=== PATIENT | female | born 1995 | race Caucasian/White ===

== ENCOUNTER 2019-04-10 18:52 | Emergency (ER) | payer SELFPAY ==
[~2019-04-10] VITALS: Ht 167.6 cm; Wt 121.6 kg
[2019-04-10 18:56] VITALS: BP 159/78
[2019-04-10] MEDS ORDERED: PRED-220 PO (19:19)
--- NOTE | 2019-04-10 19:20 | PHYS DOC ---
Past History Past Medical History: GERD, Hypertension, Other Additional Past Medical Histor: PCOS Past Surgical History: Tonsillectomy Alcohol Use: Rarely Drug Use: None Adult General Chief Complaint Chief Complaint: BACK PAIN OR INJURY [facility] HPI 23-year-old female presents with low back pain that radiates down her bilateral legs. The patient is obese at baseline. 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 She has been walking more recently picking up extra shifts. About one week ago, she started to have this low back pain that has been decreasing. Last 2 days she has had pain radiating down the back of her legs. She describes the pain as a cramping sensation in the low back with shooting pains down her legs. She denies trauma or falls. No history of back injuries or surgery. She denies extremity weakness. She has been trying Tylenol and ibuprofen without relief. She denies fever or chills. Review of Systems Review of Systems Constitutional: Denies fever or chills [] Eyes: Denies change in visual acuity, redness, or eye pain [] HENT: Denies nasal congestion or sore throat [] Respiratory: Denies cough or shortness of breath [] Cardiovascular: No additional information not addressed in HPI [] GI: Denies abdominal pain, nausea, vomiting, bloody stools or diarrhea [] : Denies dysuria or hematuria [] Musculoskeletal: Low back pain[] Integument: Denies rash or skin lesions [] Neurologic: Denies headache, focal weakness or sensory changes [] Endocrine: Denies polyuria or polydipsia [] All other systems were reviewed and found to be within normal limits, except as documented in this note. Allergies Allergies Allergies Coded Allergies Type Severity Reaction Last Updated Verified sulfamethoxazole Allergy Unknown 04/10/19 Yes trimethoprim Allergy Unknown 04/10/19 Yes Physical Exam Physical Exam Constitutional: Well developed, morbidly obese, well nourished, no acute distress, non-toxic appearance. [] HENT: Normocephalic, atraumatic, bilateral external ears normal, oropharynx moist, no oral exudates, nose normal. [] Eyes: PERRLA, EOMI, conjunctiva normal, no discharge. [] Neck: Normal range of motion, no tenderness, supple, no stridor. [] Cardiovascular:Heart rate regular rhythm, no murmur [] Lungs & Thorax: Bilateral breath sounds clear to auscultation [] Abdomen: Bowel sounds normal, soft, no tenderness, no masses, no pulsatile masses. [] Skin: Warm, dry, no erythema, no rash. [] Back: No tenderness of the lumbar spine.[] Extremities: No tenderness, no cyanosis, no clubbing, ROM intact, no edema. [] Neurologic: Alert and oriented X 3, normal motor function, normal sensory function, no focal deficits noted. [] Psychologic: Affect normal, judgement normal, mood normal. [] Current Patient Data Vital Signs Vital Signs Date Time Temp Pulse Resp B/P (MAP) Pulse Ox O2 Delivery O2 Flow Rate FiO2 04/10/19 18:56 98.5 101 16 98 Room Air EKG EKG [] Radiology/Procedures Radiology/Procedures [] Course & Med Decision Making Course & Med Decision Making Pertinent Labs and Imaging studies reviewed. (See chart for details) The patient appears to have a lumbar strain with sciatic symptoms. I will try a ten-day course of prednisone. Will give the first dose in the ED. The patient may need to take some time off and see physical therapy. She is stable for discharge at this time. [] Dragon Disclaimer Dragon Disclaimer This electronic medical record was generated, in whole or in part, using a voice recognition dictation system. Departure Departure: Impression: Primary Impression: Lumbar strain Disposition: 01 HOME, SELF-CARE Condition: STABLE Referrals: PCP,NO (PCP) Patient Instructions: Low Back Strain with [facility]hab[facility] Scripts Prednisone (PREDNISONE) 10 Mg Tablet 10 MG PO UD for PREDNISONE TAPER, #30 TAB 0 Refills Take 5 tablets by mouth daily for 2 days, then take 4 tablets by mouth daily for 3 days, then take 2 tablet by mouth daily for 3 days, then take 1 tablet by mouth daily for 2 days, then stop. Prov: KARYNA ORTIZ DO 04/10/19 Problem Qualifiers Primary Impression: Lumbar strain Encounter type: initial encounter Qualified Codes: S39.012A - Strain of muscle, fascia and tendon of lower back, initial encounter KARYNA ORTIZ DO Apr 10, 2019 19:20
[2019-04-10] MEDS: predniSONE 20 MG TABLET PO ONE (19:43)
== END 2019-04-10 19:48 | disposition home or self-care (01) ==
LOC: ER 18:52
DX: S39.012A Strain of muscle, fascia and tendon of lower back, initial encounter (principal); K21.9 Gastro-esophageal reflux disease without esophagitis; I10 Essential (primary) hypertension; Z88.1 Allergy status to other antibiotic agents; X50.9XXA Other and unspecified overexertion or strenuous movements or postures, initial encounter; Y93.89 Activity, other specified; Y92.512 Supermarket, store or market as the place of occurrence of the external cause; Y99.0 Civilian activity done for income or pay
CPT/HCPCS: 99283; J7512

== ENCOUNTER 2019-04-30 18:03 | Emergency (ER) | payer SELFPAY ==
[~2019-04-30] VITALS: Ht 167.6 cm; Wt 121.6 kg
[~2019-04-30 18:03] MED LIST: PRED-220 PO
--- NOTE | 2019-04-30 18:08 | PHYS DOC ---
Past History Past Medical History: Constipation, GERD, Hypertension, IBS, Other Additional Past Medical Histor: PCOS Past Surgical History: Tonsillectomy Alcohol Use: Rarely Drug Use: None Adult General Chief Complaint Chief Complaint: NAUSEA/VOMITING/DIARRHEA..." I am running a fever... feel yuckie... nausea and I am vomiting.... My body feels cold.... Then hot..." HPI HPI Patient is a 23 year old female who presents with above hx and complaints of nausea, vomiting and left lower abdomen pain. No history of travel or specific ill contacts. Subjective complaints of fever like feeling. History of bad food intake. No history of trauma. No history immunosuppression. No history of trau ma. Normally does not follow-up primary care. Did not get a flu vaccination this year. Patient states she's been not feeling well for last 3 days. No history of colitis or family members. Patient states her period is not due for one week. Pt. has hx of IBS and GERD. Review of Systems Review of Systems Constitutional: Subjective fever or chills [] Eyes: Denies change in visual acuity, redness, or eye pain [] HENT: Denies nasal congestion or sore throat [] Respiratory: Denies cough or shortness of breath [] Cardiovascular: No additional information not addressed in HPI [] GI: Complaints abdominal pain, nausea, vomiting, and constipation : Denies dysuria or hematuria [] Musculoskeletal: Denies back pain or joint pain [] Integument: Denies rash or skin lesions [] Neurologic: Denies headache, focal weakness or sensory changes [] Endocrine: Denies polyuria or polydipsia [] All other systems were reviewed and found to be within normal limits, except as documented in this note. Family History Family History Noncontributory Current Medications Current Medications See nursing for home meds Allergies Allergies Allergies Coded Allergies Type Severity Reaction Last Updated Verified sulfamethoxazole Allergy Intermediate 04/10/19 Yes trimethoprim Allergy Intermediate 04/10/19 Yes Physical Exam Physical Exam Constitutional: , no acute distress, non-toxic appearance. [] HENT: Normocephalic, atraumatic, bilateral external ears normal, oropharynx moist, no oral exudates, nose normal. [] Eyes: PERRLA, EOMI, conjunctiva normal, no discharge. [] Neck: Normal range of motion, no tenderness, supple, no stridor. [] Cardiovascular:Heart rate regular rhythm, no murmur [] Lungs & Thorax: Bilateral breath sounds equal apex auscultation [] Abdomen: Bowel sounds normal, soft, left mid and lower abdomen tenderness, no masses, no pulsatile masses. [] Denies discharge. Denies dysuria.. Distended. Obese. No true rebound but some localization to left lower abdomen. Skin: Warm, dry, no erythema, no rash. [] Back: No tenderness, no CVA tenderness. [] Extremities: No tenderness, no cyanosis, no clubbing, ROM intact, no edema. [] No psoas sign. Neurologic: Alert and oriented X 3, normal motor function, normal sensory function, no focal deficits noted. [] Psychologic: Affect anxious, judgement normal, mood normal. [] EKG EKG [] Radiology/Procedures Radiology/Procedures [][address] [address] IMAGING REPORT Signed PATIENT: BEBO BARNES ACCOUNT: [id number] : 1995 LOCATION: ER AGE: 23 SEX: F EXAM STATUS: REG ER ORD. PHYSICIAN: RASHIDA KUMAR MD REASON: Abdomen pain, nausea, vomiting, body aches today PROCEDURE: ACUTE ABDOMEN SERIES Study: ACUTE ABDOMEN SERIES Indication: Abdominal pain, nausea and vomiting. Comparison: None. Findings: No abnormality of the lungs. The cardiomediastinal silhouette is within normal limits given projection. Nonobstructive bowel gas pattern. Mild/moderate well-formed stool burden scattered throughout the colon. No free air is identified. Impression: 1. Nonobstructive bowel gas pattern. 2. Mild/moderate well-formed stool burden within the colon. 3. No free air. 4. Unremarkable appearance of the chest. Electronically signed by: YONATHAN MILES MD (04/30/2019 8:44 PM) [facility] [place] DICTATED AND SIGNED BY: YONATHAN MILES MD DATE: 04/30/192043 CC: RASHIDA KUMAR MD; PCP,NO ~ Course & Med Decision Making Course & Med Decision Making Pertinent Labs and Imaging studies reviewed. (See chart for details) Patient's stay on a clear fluid diet for the next 2 days. No solids or milk products. Must allow bowel rest. Follow-up primary care. If persistent pain or discomfort. Must have re exam at that time may need a CT of abdomen. May take Zofran 8 mg up to 4 times day for only active vomiting. Tylenol and ibuprofen for pain. Must stay on a clear fluid diet no solid or milk products. Impression- 1. Abdomen pain 2. Constipation 3. Viral syndrome 4. Mild elevation of glucose 121 5. Drug screen positive for marijuana [] Dragon Disclaimer Dragon Disclaimer This electronic medical record was generated, in whole or in part, using a voice recognition dictation system. Departure Departure: Disposition: HOME/RESIDENCE PRIOR TO ADM Condition: STABLE Referrals: PCP,KYLE (PCP) Scripts Ondansetron Hcl (ZOFRAN) 8 Mg Tablet 8 MG PO QIDPRN PRN for only for active vomiting, #30 BOTTLE Prov: RASHIDA KUMAR MD 04/30/19 Dragon Disclaimer This chart was dictated in whole or in part using Voice Recognition software in a busy, high-work load, and often noisy Emergency Department environment. It may contain unintended and wholly unrecognized errors or omissions. Dragon Disclaimer This chart was dictated in whole or in part using Voice Recognition software in a busy, high-work load, and often noisy Emergency Department environment. It may contain unintended and wholly unrecognized errors or omissions. RASHIDA KUMAR MD Apr 30, 2019 18:08
[2019-04-30] MEDS ORDERED: IV RINGERS SOLUTION,LACTATED 1,000 ML IV SCH (18:45)
[2019-04-30] MEDS ORDERED: ONDANSETRON PF 4 MG/2 ML VIAL. IVP ONE (19:00)
[2019-04-30] MEDS ORDERED: FAMOTIDINE 20 MG/2 ML VIAL IVP ONE (19:00)
[2019-04-30] MEDS ORDERED: ACETAMINOPHEN 500 MG TABLET PO ONE (19:00)
[2019-04-30 19:15] LABS: BASO % 0 % (0-3); EOS % 0 % (0-3); HEMATOCRIT 40.2 % (36.0-47.0); HEMOGLOBIN 13.9 g/dL (12.0-15.5); LYMPH # 0.8 x10^3/uL (1.0-4.8); LYMPH % 10 % (24-48); MEAN CORPUSCULAR HEMOGLOBIN 30 pg (25-35); MEAN CORPUSCULAR HGB CONC 35 g/dL (31-37); MEAN CORPUSCULAR VOLUME 85 fL (79-100); MONO # 0.3 x10^3/uL (0.0-1.1); MONO % 4 % (0-9); NEUT # 6.8 x10^3uL (1.8-7.7); NEUT % 85 % (31-73); PLATELET COUNT 228 x10^3/uL (140-400); RED BLOOD COUNT 4.73 x10^6/uL (3.50-5.40)
[2019-04-30 19:18] LABS: CALCIUM 8.4 mg/dL (8.5-10.1); CREATININE 0.5 mg/dL (0.6-1.0); GFR 152.9; POTASSIUM 3.5 mmol/L (3.5-5.1)
[2019-04-30 19:23] LABS: BARBITURATES NEG (NEG); BENZODIAZEPINES NEG (NEG); CANNABINOIDS POS (NEG); COCAINE NEG (NEG); METHADONE NEG (NEG); OPIATES NEG (NEG); PHENCYCLIDINE NEG (NEG)
[2019-04-30 19:23] LABS: ALBUMIN 3.6 g/dL (3.4-5.0); DIRECT BILIRUBIN 0.1 mg/dL (0.0-0.2); TOTAL BILIRUBIN 0.4 mg/dL (0.2-1.0); TOTAL PROTEIN 7.2 g/dL (6.4-8.2)
[2019-04-30 19:25] LABS: BACTERIA,URINE 0 /HPF (0-FEW); BILIRUBIN,URINE NEG (NEG); CLARITY,URINE CLEAR; COLOR,URINE YELLOW; GLUCOSE,URINE NEG (NEG); NITRITE,URINE NEG (NEG); RBC,URINE OCC /HPF (0-2); UROBILINOGEN,URINE 0.2 mg/dL (0.2 mg/dL); WBC,URINE OCC /HPF (0-4)
[2019-04-30 19:26] LABS: AMPHETAMINE/METHAMPHETAMINE NEG (NEG); SQUAMOUS EPITHELIAL CELL,UR OCC /LPF
[2019-04-30 19:35] LABS: INFLUENZA A PATIENT NEGATIVE (NEGATIVE); INFLUENZA B PATIENT NEGATIVE (NEGATIVE)
[2019-04-30] MEDS ORDERED: KETOROLAC 30 MG/ML VIAL. IVP ONE (20:30)
[2019-04-30] MEDS ORDERED: ONDA8TAB9 PO (20:42)
[2019-04-30 20:46] VITALS: BP 164/98
--- NOTE | 2019-04-30 20:47 | RAD ---
Study: ACUTE ABDOMEN SERIES Indication: Abdominal pain, nausea and vomiting. Comparison: None. Findings: No abnormality of the lungs. The cardiomediastinal silhouette is within normal limits given projection. Nonobstructive bowel gas pattern. Mild/moderate well-formed stool burden scattered throughout the colon. No free air is identified. Impression: 1. Nonobstructive bowel gas pattern. 2. Mild/moderate well-formed stool burden within the colon. 3. No free air. 4. Unremarkable appearance of the chest. Electronically signed by: YONATHAN MILES MD (04/30/2019 8:44 PM) [facility] – [place], [place]
[2019-04-30] MEDS ORDERED: MAGNESIUM HYDROXIDE 2,400 MG/30 ML ORAL.SUSP. ONE (20:54)
[2019-04-30] MEDS ORDERED: MAGNESIUM HYDROXIDE 2,400 MG/30 ML ORAL.SUSP. PO ONE (21:00)
== END 2019-04-30 20:59 | disposition home or self-care (01) ==
LOC: ER 18:03
DX: B34.9 Viral infection, unspecified (principal); K59.00 Constipation, unspecified; R10.32 Left lower quadrant pain; R11.2 Nausea with vomiting, unspecified; R73.02 Impaired glucose tolerance (oral); F12.90 Cannabis use, unspecified, uncomplicated; K21.9 Gastro-esophageal reflux disease without esophagitis; I10 Essential (primary) hypertension; K58.9 Irritable bowel syndrome, unspecified; Z88.1 Allergy status to other antibiotic agents; Z88.2 Allergy status to sulfonamides
CPT/HCPCS: 36415; 74022; 80048; 80076; 80307; 81001; 81025; 82150; 83690; 85025; 87804; 96361; 96374; 96375; 99285; J2405; J3490; J7120

== ENCOUNTER 2019-10-30 09:43 | Emergency (ER) | payer SELFPAY ==
[~2019-10-30] VITALS: Ht 167.6 cm; Wt 119.3 kg
[~2019-10-30 09:43] MED LIST changes: +ONDA8TAB9 PO
[2019-10-30] MEDS ORDERED: ONDANSETRON ODT 4 MG TAB.RAPDIS PO ONE (10:15)
--- NOTE | 2019-10-30 10:25 | PHYS DOC ---
Past History Past Medical History: Constipation, GERD, Hypertension, IBS, Other Additional Past Medical Histor: PCOS Past Surgical History: Tonsillectomy Alcohol Use: Occasionally Drug Use: Marijuana General Adult EDM: Chief Complaint: NAUSEA/VOMITING/DIARRHEA HPI: HPI: Patient is a 24-year-old female who presented to ER today for evaluation of nausea, vomiting, headache since waking up this morning. Patient says she went out last night with her friend, she had 2 shots and 2 mixed drinks, she has history of low back pain so her friend gave her Tylenol # 3 and she took 1. She woke up this morning feel that she had a hangover. Patient denies any abdominal pain, no chest pain, no trouble breathing, no cough, no fever. Patient has history of hypertension, she had not taken her morning medication yet. Patient says she just started her period This morning. Patient is sexually active. Review of Systems: Review of Systems: Constitutional: Denies fever or chills Eyes: Denies change in visual acuity HENT: Denies nasal congestion or sore throat Respiratory: Denies cough or shortness of breath Cardiovascular: Denies chest pain or edema GI: Positive for nausea vomiting, no abdominal pain, no diarrhea : Denies dysuria Musculoskeletal: Denies back pain or joint pain Integument: Denies rash Neurologic: Positive for headache, no focal weakness or sensory changes Endocrine: Denies polyuria or polydipsia Lymphatic: Denies swollen glands Psychiatric: Denies depression or anxiety Heart Score: Risk Factors: Risk Factors: DM, Current or recent (<one month) smoker, HTN, HLP, family h istory of CAD, obesity. Risk Scores: Score 0 - 3: 2.5% MACE over next 6 weeks - Discharge Home Score 4 - 6: 20.3% MACE over next 6 weeks - Admit for Clinical Observation Score 7 - 10: 72.7% MACE over next 6 weeks - Early Invasive Strategies Current Medications: Current Meds: Current Medications Medications (Trade) Dose Ordered Sig/Jimy Start Time Stop Time Status Last Admin Dose Admin Ondansetron HCl (Zofran Odt) 8 mg 1X ONCE 10/30/19 10:15 10/30/19 10:16 DC 10/30/19 10:19 8 MG Allergies: Allergies: Allergies Coded Allergies Type Severity Reaction Last Updated Verified sulfamethoxazole Allergy Intermediate 04/10/19 Yes trimethoprim Allergy Intermediate 04/10/19 Yes Physical Exam: PE: Constitutional: Well developed, well nourished, no acute distress, non-toxic appearance. [] HENT: Normocephalic, atraumatic, bilateral external ears normal, oropharynx moist, no oral exudates, nose normal. [] Eyes: PERRLA, EOMI, conjunctiva normal, no discharge. [] Neck: Normal range of motion, no tenderness, supple, no stridor. [] Cardiovascular:Heart rate regular rhythm, no murmur [] Lungs & Thorax: Bilateral breath sounds clear to auscultation [] Abdomen: Bowel sounds normal, soft, no tenderness, no masses, no pulsatile masses. [] Skin: Warm, dry, no erythema, no rash. [] Back: No tenderness, no CVA tenderness. [] Extremities: No tenderness, no cyanosis, no clubbing, ROM intact, no edema. [] Neurologic: Alert and oriented X 3, normal motor function, normal sensory function, no focal deficits noted. [] Psychologic: Affect normal, judgement normal, mood normal. [] Current Patient Data: Vital Signs: Vital Signs Date Time Temp Pulse Resp B/P (MAP) Pulse Ox O2 Delivery O2 Flow Rate FiO2 10/30/19 09:43 98.1 97 20 189/126 (147) 97 Room Air EKG: EKG: [] Radiology/Procedures: Radiology/Procedures: [] Course & Med Decision Making: Course & Med Decision Making Pertinent Labs and Imaging studies reviewed. (See chart for details) [] Dragon Disclaimer: Dragon Disclaimer: This electronic medical record was generated, in whole or in part, using a voice recognition dictation system. Departure Departure: Impression: Primary Impression: Nausea & vomiting Disposition: 01 HOME/RESIDENCE PRIOR TO ADM Condition: IMPROVED Referrals: JOSE DIXON MD (PCP) please follow up with your doctor as needed Patient Instructions: Nausea and Vomiting Justification of Admission: Justification of Admission: Justification of Admission Dx: N/A SENG ADAMS DO Oct 30, 2019 10:25
[2019-10-30 11:50] VITALS: BP 182/106
== END 2019-10-30 11:50 | disposition home or self-care (01) ==
LOC: ER 09:43
DX: R11.2 Nausea with vomiting, unspecified (principal); R51 Headache; K21.9 Gastro-esophageal reflux disease without esophagitis; I10 Essential (primary) hypertension; K58.9 Irritable bowel syndrome, unspecified; E28.2 Polycystic ovarian syndrome; Z88.2 Allergy status to sulfonamides; Z88.1 Allergy status to other antibiotic agents
CPT/HCPCS: 81025; 99283; Q0162